=== PATIENT | male | born 1945 | race African-American/Black ===

== ENCOUNTER 2022-11-21 10:13 | Outpatient (CLI) | payer MEDICARE, OTHER ==
[2022-11-21 12:28] LABS: Bilirubin Neg (Negative); Blood, Urine Negative (Negative); Clarity Clear (Clear); Glucose, Urine (Dipstick) Normal (Negative); Ketone, Urine Negative (Negative); Leukocyte Negative (Negative); Nitrite Negative (Negative); Protein, Urine (Dipstick) Negative (Neg-Trace); Urobilinogen Normal mg/dL (Less than 2)
[2022-11-21 12:30] LABS: Hemoglobin 13.1 g/dL (13.5-17.5); Mean Corpuscular HGB CONC 32.1 g/dL (32.0-36.0); Mean Corpuscular Hemoglobin 27.5 pg (27.0-33.0); Mean Corpuscular Volume 85.5 fl (81.2-95.1); Mean Platelet Volume 9.5 fl (7.4-10.4); Platelet Count 282 10x3/uL (150-450); RBC Distribution Width 14.8 % (11.5-14.5); Red Blood Cell (RBC) Count 4.77 10x6/uL (4.32-5.72)
[2022-11-21 12:36] LABS: Bacteria/HPF None Seen HPF (None Seen); RBC/HPF None Seen HPF (0-3); Squamous Epithelial None Seen HPF (0-3); WBC/HPF 0-3 HPF (0-3)
[2022-11-21 12:41] LABS: PTT 30.5 sec (22.0-33.0); Prothrombin Time 10.5 sec (9.5-12.1)
[2022-11-21 12:47] LABS: Anion Gap 17 mmol/L (10-20); BUN (Urea Nitrogen) 12 mg/dL (8.4-25.7); Calc. Creatinine Clearance 0 mL/min (70-130); Calcium 9.5 mg/dL (7.8-10.44); Carbon Dioxide 25 mmol/L (23-31); Chloride 103 mmol/L (98-107); Estimated GFR 67; Glucose 91 mg/dL (83-110); Potassium 4.5 mmol/L (3.5-5.1); Sodium 140 mmol/L (136-145)
== END 2022-11-21 10:14 | disposition home or self-care (01) ==
LOC: LABBT 10:13
PROVIDERS: ATTEND Urology
DX: Z01.818 Encounter for other preprocedural examination (principal); N52.31 Erectile dysfunction following radical prostatectomy; N39.41 Urge incontinence; R35.0 Frequency of micturition; Z85.46 Personal history of malignant neoplasm of prostate
CPT/HCPCS: 71046; 80048; 81001; 85027; 85610; 85730; 87086; 93005; 93010

== ENCOUNTER 2023-01-02 13:59 | Outpatient (CLI) | payer MEDICARE, OTHER ==
[2023-01-02 15:38] LABS: Bilirubin Neg (Negative); Blood, Urine Negative (Negative); Clarity Clear (Clear); Glucose, Urine (Dipstick) Normal (Negative); Ketone, Urine Negative (Negative); Leukocyte Negative (Negative); Nitrite Negative (Negative); Protein, Urine (Dipstick) 15 mg/dl (Neg-Trace); Specific Gravity, Urine 1.015 (1.005-1.030); Urobilinogen Normal mg/dL (Less than 2)
[2023-01-02 15:41] LABS: Hematocrit 42.3 % (38.8-50.0); Hemoglobin 13.6 g/dL (13.5-17.5); Mean Corpuscular HGB CONC 32.2 g/dL (32.0-36.0); Mean Corpuscular Hemoglobin 27.5 pg (27.0-33.0); Mean Corpuscular Volume 85.6 fl (81.2-95.1); Mean Platelet Volume 9.6 fl (7.4-10.4); Platelet Count 273 10x3/uL (150-450); RBC Distribution Width 14.7 % (11.5-14.5); Red Blood Cell (RBC) Count 4.94 10x6/uL (4.32-5.72); White Blood Cell (WBC) Count 5.9 10x3/uL (3.5-10.5)
[2023-01-02 15:52] LABS: RBC/HPF 0-3 HPF (0-3); Squamous Epithelial 0-3 HPF (0-3); WBC/HPF 0-3 HPF (0-3)
[2023-01-02 15:53] LABS: Bacteria/HPF Rare-Few HPF (None Seen)
[2023-01-02 16:01] LABS: Anion Gap 12 mmol/L (10-20); BUN (Urea Nitrogen) 17 mg/dL (8.4-25.7); Calc. Creatinine Clearance 0 mL/min (70-130); Calcium 9.6 mg/dL (7.8-10.44); Carbon Dioxide 28 mmol/L (23-31); Chloride 103 mmol/L (98-107); Estimated GFR 59; Glucose 92 mg/dL (83-110); Potassium 4.5 mmol/L (3.5-5.1); Sodium 138 mmol/L (136-145)
[2023-01-02 16:19] LABS: PTT 31.2 sec (22.0-33.0); Prothrombin Time 10.3 sec (9.5-12.1)
== END 2023-01-02 14:00 | disposition home or self-care (01) ==
LOC: LABBT 13:59
PROVIDERS: ATTEND Urology
DX: Z01.818 Encounter for other preprocedural examination (principal); N52.31 Erectile dysfunction following radical prostatectomy; N39.41 Urge incontinence; R35.0 Frequency of micturition
CPT/HCPCS: 71046; 80048; 81001; 85027; 85610; 85730; 87086; 93005; 93010

== ENCOUNTER 2023-01-12 05:52 | Day surgery (SDC) | payer MEDICARE, OTHER ==
[2023-01-02 15:07] VITALS: BMI 27.3
[2023-01-12] MEDS ORDERED: SUGAMMADEX SODIUM 200 MG/2 ML VIAL ONE (06:26)
[2023-01-12] MEDS ORDERED: fentaNYL PF 100 MCG/2 ML SYRINGE ONE ×2 (06:26→08:49)
[2023-01-12] MEDS ORDERED: Vancomycin 1 GM VIAL ONE (06:43)
[2023-01-12] MEDS ORDERED: Gentamicin 80 MG/2 ML VIAL ONE (07:15)
[2023-01-12] MEDS ORDERED: Vancomycin 1 GM/200 ML (FROZEN) BAG ONE (07:29)
[2023-01-12] MEDS ORDERED: Aztreonam 1 GM in Sodium Chloride 0.9% 100 ML IVPB SCH (07:45)
[2023-01-12] MEDS ORDERED: Ondansetron PF 4 MG/2 ML Vial ONE (07:48)
[2023-01-12] MEDS ORDERED: ePHEDrine Sulfate 50 MG/10 ML VIAL ONE (07:48)
[2023-01-12] MEDS ORDERED: PHENYLEPHRINE-NS 100 MCG/ML 10 ML SYRINGE ONE (07:48)
[2023-01-12] MEDS ORDERED: PROPOFOL 200 MG/20 ML VIAL ONE (07:48)
[2023-01-12] MEDS ORDERED: Dexamethasone 20 MG/5 ML VIAL ONE (07:48)
[2023-01-12] MEDS ORDERED: Lidocaine 1% PF 5 ML VIAL ONE (07:48)
[2023-01-12] MEDS ORDERED: Bupivacaine 0.25% HCL 30 ML VIAL ONE (08:46)
[2023-01-12] MEDS ORDERED: fentaNYL 50 mcg/mL 1 mL Vial ONE (08:50)
[2023-01-12] MEDS ORDERED: HYDROcodone/Acetaminophen 5/325 mg Tablet ONE (11:27)
== END 2023-01-12 12:05 | disposition home or self-care (01) ==
LOC: SDC 05:52
PROVIDERS: ATTEND Urology
PROC: 0VUS0JZ Supplement Penis with Synthetic Substitute, Open Approach (ICD-10-PCS; principal; 2023-01-12)
PROC: 0VPS0JZ Removal of Synthetic Substitute from Penis, Open Approach (ICD-10-PCS; 2023-01-12)
DX: N52.9 Male erectile dysfunction, unspecified (principal); T83.490A Other mechanical complication of implanted penile prosthesis, initial encounter; N52.31 Erectile dysfunction following radical prostatectomy; J45.909 Unspecified asthma, uncomplicated; G47.33 Obstructive sleep apnea (adult) (pediatric); K21.9 Gastro-esophageal reflux disease without esophagitis; E78.5 Hyperlipidemia, unspecified; Z79.899 Other long term (current) drug therapy
CPT/HCPCS: 54410; A4314; C1713; C1813; J3010; J3370; J0457; J1100; J1580; J2405; J2704; J3490; S0020